=== PATIENT | male | born 1975 | race Asian ===

== ENCOUNTER 2024-04-15 00:28 | Observation (INO) | payer OTHER ==
[2024-04-15] VITALS (8 sets, daily range): BP systolic 114–132; BP diastolic 83–91; PULSE 77–94; RESP 16; TEMP 97.2–99.1; O2SAT 97–100
[~2024-04-15] VITALS: Ht 165.1 cm; Wt 74.4 kg
[2024-04-15 01:20] LABS: BASOPHILS # (AUTO) 0.1 K/uL (0.00-0.22); BASOPHILS % (AUTO) 0.8 % (0.0-2.0); EOSINOPHILS # (AUTO) 0.4 K/uL (0-0.4); EOSINOPHILS % (AUTO) 4.6 % (0.0-4.0); HEMATOCRIT 45.3 % (36-52); HEMOGLOBIN 14.9 g/dL (12.0-18.0); LYMPHOCYTES # (AUTO) 2.2 K/uL (2.0-11.5); LYMPHOCYTES % (AUTO) 27.7 % (20.5-51.1); MEAN CORPUSCULAR HEMOGLOBIN 28 pg (27-31); MEAN CORPUSCULAR HGB CONC 33 g/dL (33-37); MEAN CORPUSCULAR VOLUME 84.9 fL (80-94); MONOCYTES # (AUTO) 0.9 K/uL (0.8-1.0); MONOCYTES % (AUTO) 10.8 % (1.7-9.3); NEUTROPHILS # (AUTO) 4.5 K/uL (1.8-7.7); NEUTROPHILS % (AUTO) 56.1 % (42.2-75.2); PLATELET COUNT (AUTO) 171 K/uL (140-450); RED BLOOD CELL COUNT(AUTO) 5.34 MIL/uL (4.20-6.10); RED CELL DISTRIBUTION WIDTH 14.2 % (11.6-13.7)
[2024-04-15 01:29] LABS: ANION GAP 12.2 (8-16); CALCIUM 9.3 mg/dL (8.5-10.1); CARBON DIOXIDE 29.5 mmol/L (21-32); CREATININE 0.9 mg/dL (0.6-1.3); POTASSIUM 4.7 mmol/L (3.5-5.1)
[2024-04-15 01:34] LABS: ALBUMIN 3.8 g/dL (3.4-5.0); TOTAL BILIRUBIN 0.5 mg/dL (0.0-1.0); TOTAL PROTEIN, SERUM 8.1 g/dL (6.4-8.2)
[2024-04-15] MEDS ORDERED: LOSA-272 PO (02:28)
[2024-04-15] MEDS ORDERED: CARV3.12 PO (02:28)
[2024-04-15] MEDS ORDERED: METF-1139 PO (02:28)
[2024-04-15] MEDS ORDERED: ASPI-1205 PO (02:28)
[2024-04-15] MEDS ORDERED: ROSU40TA PO (02:28)
[2024-04-15] MEDS ORDERED: SYN.05 PO (02:28)
[2024-04-15] MEDS ORDERED: TADA5TAB PO (02:28)
[2024-04-15] MEDS ORDERED: EMPA10TA PO (02:28)
[2024-04-15] MEDS ORDERED: MAGNESIUM OXIDE 400 MG TAB PO PRN (03:40)
[2024-04-15] MEDS ORDERED: MAG SULF 2000 MG/WATER PREMIX 50 ML IV PRN (03:40)
[2024-04-15] MEDS ORDERED: POTASSIUM CHLORIDE 10 MEQ TABER PO PRN (03:40)
[2024-04-15] MEDS ORDERED: MORPHINE SULFATE 4 MG/ML SYR IVP PRN (03:40)
[2024-04-15] MEDS ORDERED: ONDANSETRON 4 MG/2 ML VIAL IVP PRN (03:40)
[2024-04-15] MEDS ORDERED: ACETAMINOPHEN 325 MG TAB PO PRN (03:40)
[2024-04-15] MEDS ORDERED: HYDROcodone/APAP 5/325 MG 1 TAB TAB PO PRN (03:40)
[2024-04-15] MEDS: NACL 0.9% 1,000 ML IV SCH (04:08)
== END 2024-04-15 19:30 | disposition left against medical advice (07) ==
LOC: MED 00:28 → MTU 03:42
PROVIDERS: ADMIT Hospitalist; ATTEND Hospitalist
DX: I21.4 Non-ST elevation (NSTEMI) myocardial infarction (principal); R07.2 Precordial pain; R79.89 Other specified abnormal findings of blood chemistry; I10 Essential (primary) hypertension; I25.10 Atherosclerotic heart disease of native coronary artery without angina pectoris; E11.9 Type 2 diabetes mellitus without complications; E78.5 Hyperlipidemia, unspecified; I25.2 Old myocardial infarction; Z79.899 Other long term (current) drug therapy
CPT/HCPCS: 36415; 71045; 80053; 83880; 84484; 85025; 87081; 93005; 96360; 96361; 96372; 99291; C8929; G0378; J1644; Q0092; 99285